=== PATIENT | female | born 1995 | race African-American/Black ===

== ENCOUNTER 2017-08-17 18:48 | Emergency (ER) | payer BC ==
[~2017-08-17] VITALS: Ht 177.8 cm; Wt 109.6 kg
[2017-08-17 18:53] VITALS: TEMP 36.7; Ht 177.8 cm; Wt 109.6 kg
--- NOTE | 2017-08-17 19:45 | EMERGENCY ROOM VISIT NOTE ---
History Report prepared by Samibisabell: Iris Garcia Under the Supervision of: Dr. Jocelyn Baldwin D.O. First contact with patient: 19:38 Chief Complaint: COUGH Stated Complaint: COUGH, DIFFICULTY BREATHUNG, FAST HEART BEAT Nursing Triage Summary: Pt reports she had cold symptoms at [place] and remains with cough. Pt reports she coughs so hard she vomits. Pt also reports SOB and sore throat. History of Present Illness The patient is a 22 year old female who presents to the Emergency Room with complaints of a worsening cough for the past 2 months. She admits to a history of asthma and states she has been having increasing difficulty breathing and has experienced a fast heart rate. She has coughed so hard she has vomited twice in the past few days. Robitussin and DayQuil have provided minimal relief for the cough. The patient states she has been using a Nebulizer with minimal relief. She also complains of a sore throat. She denies any fevers, chills, cold symptoms, chest pain, abdominal pain, nausea, vomiting, diarrhea or pain or swelling in the legs. The patient did not receive a flu shot this year. 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 A total of 10 systems reviewed and were otherwise negative. Past Medical & Surgical Medical Problems: (1) Asthma Social History Smoking Status: Never Smoker Alcohol Use: occasionally Drug Use: none Marital Status: single Housing Status: lives with roommate Occupation Status: [employer] Current/Historical Medications Scheduled Azithromycin (Zithromax), 250 MG PO DAILY Prednisone (Prednisone Tab), 3 TAB PO DAILY [Proair], 1-2 PUFF INH PRN UD Scheduled PRN Ibuprofen (Motrin), 800 MG PO BID PRN for Pain or Fever Montelukast Sodium (Singulair), 10 MG PO DAILY PRN for Seasonal Allergies Physical Exam Vital Signs Date Time Temp Pulse Resp B/P (MAP) Pulse Ox O2 Delivery O2 Flow Rate FiO2 08/17/17 21:19 82 20 132/78 99 08/17/17 20:34 88 20 154/84 99 Room Air 08/17/17 18:53 36.7 91 20 145/91 99 Room Air Physical Exam GENERAL: alert, well appearing, well nourished, no distress, non-toxic EYE EXAM: normal conjunctiva, PERRL and EOM's grossly intact OROPHARYNX: no exudate, no erythema, lips, buccal mucosa, and tongue normal and mucous membranes are moist NECK: supple, no nuchal rigidity, no adenopathy, non-tender LUNGS: Slightly diminished lung sounds. No wheezes, rhonchi or rails. Normal chest wall mechanics HEART: no murmurs, S1 normal and S2 normal ABDOMEN: abdomen soft, non-tender, normo-active bowel sounds, no masses, no rebound or guarding. BACK: Back is symmetrical on inspection and there is no deformity, no midline tenderness, no CVA tenderness. SKIN: no rashes and no bruising UPPER EXTREMITIES: upper extremities are grossly normal. LOWER EXTREMITIES: No pitting edema. NEURO EXAM: Normal sensorium, cranial nerves II-XII [grossly] intact, normal speech, no [gross] weakness of arms, no [gross] weakness of legs. [No drift. Finger to nose intact. Gross sensation intact.] Medical Decision & Procedures ER Provider Diagnostic Interpretation: Radiology results have been interpreted and reviewed by me. CHEST X-RAY No cardiomegaly. No effusion. No consolidation. No wide mediastinum. Medications Administered Medications (Trade) Dose Ordered Sig/[place] Route Start Time Stop Time Status Last Admin Dose Admin Albuterol/ Ipratropium (Duoneb) 3 ml NOW STAT INH 08/17/17 19:47 08/17/17 19:50 DC 08/17/17 19:47 3 ML Benzonatate (Tessalon Perles Cap) 100 mg NOW ONCE PO 08/17/17 20:00 08/17/17 20:01 DC 08/17/17 19:58 100 MG Prednisone (PredniSONE TAB) 60 mg NOW STAT PO 08/17/17 19:47 08/17/17 19:50 DC 08/17/17 19:47 60 MG Azithromycin (Zithromax Tab) 500 mg NOW ONCE PO 08/17/17 21:00 08/17/17 21:01 DC 08/17/17 21:00 500 MG ED Course 1939: The patient was evaluated in room C9. A complete history and physical exam was performed. 1946: Prednisone 60 mg PO, DuoNeb 3 ml INH. 1999: Benzonatate 100 mg PO. 2034: Nursing informed me the patient would like to leave because the weather is bad. She states she doesn't feel much better, but doesn't want to stay because of the snow. 2039: I reevaluated the patient. I discussed her results and discharge instructions and she verbalized complete understanding and agreement. 2099: Azithromycin 50 mg PO. Medical Decision Prior records/ancillary studies reviewed. Triage Nursing notes reviewed. Additional history obtained from the family. The patient's history was concerning for respiratory difficulties. Differential diagnosis: Etiologies such as infections, reactive airway disease, pneumonia, pneumothorax , COPD, CHF, cardiac ischemia, pulmonary embolism, musculoskeletal, gastrointestinal, as well as others were entertained. Patient well-appearing here however no immediate improvement following medications and nebulizers there is here. Given chronicity of symptoms chest x- ray performed. Given possibility of atypical infection, started on azithromycin. Also discussed with patient use of steroids to help with asthma exacerbations due to frequent coughing and likely bronchospasm. Discussed with patient use of her nebulizer at home, use of the antibiotic and steroid, the need for follow-up with family doctor given persistence of her symptoms, symptoms to watch and return for, she verbalized understanding was agreeable with plan. I do not suspect underlying cardiac etiology, no evidence of acute respiratory distress or need for additional pulmonary support. Doubt bacteremia /sepsis, doubt vascular etiology, doubt deep space infection, doubt epiglottitis , doubt occult mass. Patient with no dysphonia, dysphagia, or other evidence of oropharyngeal pathology contributing to symptoms. Patient denies any history of GERD. Patient able to ambulate with a steady gait did not appear short of breath with any exertion. Patient asking to leave due to incoming inclement weather prior to radiology read of chest x-ray. Medication Reconcilliation Current Medication List: was personally reviewed by me Blood Pressure Screening Patient's blood pressure: Elevated blood pressure Blood pressure disposition: Referred to PCP Impression Primary Impression: Cough Additional Impression: Asthma Scribe Attestation The scribe's documentation has been prepared under my direction and personally reviewed by me in its entirety. I confirm that the note above accurately reflects all work, treatment, procedures, and medical decision making performed by me. Departure Information Dispostion Home / Self-Care Prescriptions Azithromycin (Zithromax) 250 Mg Tab 250 MG PO DAILY, #4 TAB Prov: Lydiabrigette Jocelyn S., DO 08/17/17 Prednisone (Prednisone Tab) 20 Mg Tab 3 TAB PO DAILY, #12 TAB FOR 4 DAYS Prov: Lydiabrigette Jocelyn S., DO 08/17/17 Referrals No Doctor, Assigned (PCP) Patient Instructions My [facility] Additional Instructions Please take the antibiotics as prescribed, use the steroids as prescribed. Please avoid any potential triggers for your asthma. You may use your inhaler or nebulizer treatments up to every 4 hours as needed for trouble breathing, wheezing, chest tightness. Please follow up with your family doctor as precaution. If you have any worsening shortness of breath, noticed blood in your sputum, develop fevers, chest pain, vomiting, dizziness, you've any other new concerns, please return the emergency room. Problem Qualifiers Additional Impression: Asthma Asthma severity: mild Asthma persistence: intermittent Asthma complication type: with acute exacerbation Qualified Codes: J45.21 - Mild intermittent asthma with (acute) exacerbation
[2017-08-17] MEDS ORDERED: ALBUT/IPRATROP 3MG/0.5MG NEB 3 ML VIAL INH STA (19:47)
[2017-08-17] MEDS ORDERED: BENZONATATE 100MG CAP PO ONE (20:00)
[2017-08-17] MEDS ORDERED: MONT1TAB3 PO (20:21)
[2017-08-17] MEDS ORDERED: IBUP-1428 PO (20:21)
[2017-08-17] MEDS ORDERED: PROAIR INH (20:21)
[2017-08-17] MEDS ORDERED: PRED20TA2 PO (20:56)
[2017-08-17] MEDS ORDERED: AZIT250T PO (20:56)
[2017-08-17] MEDS ORDERED: AZITHROMYCIN 250 MG TAB PO ONE (21:00)
[2017-08-17 21:19] VITALS: BP 132/78; PULSE 82; O2SAT 99
--- NOTE | 2017-08-17 21:50 | DIAGNOSTIC IMAGING REPORT ---
CHEST 2 VIEWS ROUTINE CLINICAL HISTORY: cough COMPARISON STUDY: No previous studies for comparison. FINDINGS: Lung volumes are normal. No pneumothorax or pleural effusion is noted. Cardiac size is normal. Mediastinal contours are normal. There is no evidence for pulmonary edema. IMPRESSION: No acute cardiopulmonary findings. Electronically signed by: Jl Sue M.D. 08/17/2017 9:48 PM Dictated Date/Time: 08/17/2017 9:48 PM
== END 2017-08-17 21:20 | disposition home or self-care (01) ==
LOC: C.EDB 18:52 → C.EDC 21:20
DX: R05 Cough (principal); J45.909 Unspecified asthma, uncomplicated; R00.0 Tachycardia, unspecified; R11.10 Vomiting, unspecified; R07.0 Pain in throat; R03.0 Elevated blood-pressure reading, without diagnosis of hypertension